=== PATIENT | female | born 1935 | race Caucasian/White ===

== ENCOUNTER 2017-07-24 12:34 | Emergency (ER) | payer MEDICARE, OTHER ==
[~2017-07-24] VITALS: Ht 165.1 cm; Wt 69.0 kg
--- NOTE | ~2017-07-24 | CT71 ---
[facility] A Service of [facility] RADIOLOGY TEXT RESULTS PATIENT: FRANCESCO SMITH LOCATION: [facility] : 37 UNIT #: [id number] AGE: [address]: Sky Bui MD SEX: F ORDER DR: [id number] [facility] [address] [place], [place] [address] [id number] E MR#: [id number] Acc #: [id number] NAME: FRANCESCO SMITH : 1935 SEX: F STUDY DATE/TIME: 07/24/2017 13:40 UNIT: [facility] ROOM: STUDY DESCRIPTION: CT Head Wo Contrast Attending Physician: Sky Bui M.D. Ordering Physician: Sky Bui M.D. Primary Care Physician: Dodie Russ M.D. MEDICAL IMAGING REPORT This report is preliminary unless electronic signature is present EXAM Noncontrast head CT HISTORY 82-year-old female fell last evening, complains of head pain, neck tenderness. COMPARISON Head CT 05/05/[address] exam was performed with one or more of the following radiation dose reduction techniques: automatic control, adjustment of mA and/or kV according to patient size, and iterative reconstruction. FINDINGS Axial noncontrast imaging of the brain demonstrates generalized atrophy. No mass, mass effect or midline shift. No hemorrhage. Extensive left vertebral vascular calcifications noted. Bony calvaria skull base mastoids unremarkable. Minimal ethmoid sinus mucosal disease and left maxillary sinus mucosal disease. IMPRESSION No acute intracranial abnormality identified. Mild generalized atrophy in keeping with advanced age. Dictated by... Rupa Bates M.D. THIS IS AN ELECTRONICALLY VERIFIED REPORT Rupa Bates M.D. at 07/24/2017 7:57 PM JMS/rnr [facility] A Service of [facility] RADIOLOGY TEXT RESULTS PATIENT: FRANCESCO SMITH LOCATION: [facility] : 37 UNIT #: [id number] AGE: [address]: Sky Bui MD SEX: F ORDER DR: TD: 07/24/2017 16:49 JOB #: [id number] MEDICAL IMAGING REPORT Page 1 of 1 COPY
--- NOTE | ~2017-07-24 | CR132 ---
[facility] A Service of [facility] RADIOLOGY TEXT RESULTS PATIENT: FRANCESCO SMITH LOCATION: [facility] : 37 UNIT #: [id number] AGE: [address]: Sky Bui MD SEX: F ORDER DR: [id number] [facility] [address] [place], [place] [address] [id number] E MR#: [id number] Acc #: [id number] NAME: FRANCESCO SMITH : 1935 SEX: F STUDY DATE/TIME: 07/24/2017 13:30 UNIT: [facility] ROOM: STUDY DESCRIPTION: CR Forearm 2 View Lt Attending Physician: Sky Bui M.D. Ordering Physician: Sky Bui M.D. Primary Care Physician: Dodie Russ M.D. MEDICAL IMAGING REPORT This report is preliminary unless electronic signature is present EXAM Three views of the left forearm. DATE 07/24/2017 HISTORY 82-year-old female with left wrist and forearm pain and swelling for 1 day. Fell yesterday. COMPARISON Left wrist radiographs 07/24/2017. FINDINGS Osteopenic changes are present which limit sensitivity for detection of subtle nondisplaced fracture. Suspected nondisplaced radial styloid process fracture, thought to be demonstrated to better advantage on the dedicated wrist radiographs of this same date. Radiocarpal alignment is maintained. Elbow joint appears intact. True lateral view of the elbow not obtained, performed with obliquity. No retained radiopaque foreign bodies seen in the soft tissues. Mild calcific atherosclerosis within the forearm and wrist. Diffuse left wrist soft tissue swelling. IMPRESSION 1. Suspected nondisplaced fracture of the left radial styloid. Radiocarpal alignment is maintained. 2. Elbow joint appears intact. 3. Osteopenia. Dictated by... Shelby Torres M.D. [facility] A Service of [facility] RADIOLOGY TEXT RESULTS PATIENT: FRANCESCO SMITH LOCATION: [facility] : 37 UNIT #: [id number] AGE: [address]: Sky Bui MD SEX: F ORDER DR: THIS IS AN ELECTRONICALLY VERIFIED REPORT Shelby Torres M.D. at 07/25/2017 12:27 PM BIB/corey TD: 07/24/2017 15:30 JOB #: [id number] MEDICAL IMAGING REPORT Page 1 of 1 COPY
--- NOTE | ~2017-07-24 | CT52 ---
[facility] A Service of [facility] RADIOLOGY TEXT RESULTS PATIENT: FRANCESCO SMITH LOCATION: [facility] : 37 UNIT #: [id number] AGE: [address]: Sky Bui MD SEX: F ORDER DR: [id number] [facility] [address] [place], [place] [address] [id number] E MR#: [id number] Acc #: [id number] NAME: FRANCESCO SMITH : 1935 SEX: F STUDY DATE/TIME: 07/24/2017 15:29 UNIT: [facility] ROOM: STUDY DESCRIPTION: CT Cervical Spine Wo Cont Attending Physician: Sky Bui M.D. Ordering Physician: Sky Bui M.D. Primary Care Physician: Dodie Russ M.D. MEDICAL IMAGING REPORT This report is preliminary unless electronic signature is present EXAM CT cervical spine without contrast DATE 07/24/2017 HISTORY 82-year-old female who fell last night with neck tenderness and head pain since last night. COMPARISON CT cervical spine 05/05/2016. PROCEDURE 2 mm axial images through the cervical spine without contrast. Sagittal and coronal reformatted images were obtained. This CT exam was performed with one or more of the following radiation dose reduction techniques: automatic control, adjustment of mA and/or kV according to patient size, and iterative reconstruction. FINDINGS No acute cervical spine fracture is seen. There is approximately 1-2 mm anterolisthesis of C4 upon C5 which is new since 05/05/2016. There is mild to moderate diminished disc height at C4-5 as well with new vacuum disc phenomenon since the previous exam. Anterior osteophyte formation is seen at C4, C5 and C6 and C7. Craniocervical junction is intact. Advanced facet arthropathy is present on the right at C4-5. More vssr-yz-edomhwbi multilevel facet arthropathy is also present. Varying degrees of posterior disc osteophyte formation are present, with probable ghky-oy-xzuspyfw canal stenosis at C5-6. There is a small right paracentral disc protrusion measuring 5 x 10 mm at C2-3 resulting in mild STS. [facility] A Service of [facility] & [facility] RADIOLOGY TEXT RESULTS PATIENT: FRANCESCO SMITH [id number] 37 UNIT #: [id number] AGE: [address]: Sky Bui MD SEX: F ORDER DR: to moderate central canal stenosis, not appreciably changed. IMPRESSION 1. 1-2 mm anterolisthesis of C4 upon C5, may be secondary to advanced facet arthropathy at that level, particularly on the right, but this anterolisthesis appears new since 05/05/2016. At C4-5, there is vacuum disc phenomenon which is new, as well, suggesting progressive degenerative change. 2. No acute cervical spine fracture. 3. Multilevel degenerative changes. Wpun-qe-uhywmnbz canal stenosis at C2-3 secondary to central disc protrusion and at C5-6 secondary to broad-based posterior disc osteophyte formation. Dictated by... Shelby Torres M.D. THIS IS AN ELECTRONICALLY VERIFIED REPORT Shelby Torres M.D. at 07/25/2017 12:27 PM BIB/kemi TD: 07/24/2017 17:46 JOB #: [id number] MEDICAL IMAGING REPORT Page 1 of 1 COPY
--- NOTE | ~2017-07-24 | CR281 ---
[facility] A Service of [facility] RADIOLOGY TEXT RESULTS PATIENT: FRANCESCO SMITH LOCATION: [facility] : 37 UNIT #: [id number] AGE: [address]: Sky Bui MD SEX: F ORDER DR: [id number] [facility] [address] [place], [place] [address] [id number] E MR#: [id number] Acc #: [id number] NAME: FRANCESCO SMITH : 1935 SEX: F STUDY DATE/TIME: 07/24/2017 13:27 UNIT: [facility] ROOM: STUDY DESCRIPTION: CR Wrist Min 3 View Lt Attending Physician: Sky Bui M.D. Ordering Physician: Sky Bui M.D. Primary Care Physician: Dodie Russ M.D. MEDICAL IMAGING REPORT This report is preliminary unless electronic signature is present EXAM 3-views left wrist DATE 07/24/2017 HISTORY Left wrist and forearm pain and swelling for 1 day. Fell yesterday. FINDINGS Findings suspicious for a nondisplaced radial styloid process fracture. Diffuse left wrist soft tissue swelling is seen. Distal ulna and carpal bones appear intact. Radiocarpal alignment and carpocarpal alignment is satisfactory. Diffuse left wrist soft tissue swelling. Osteopenia. IMPRESSION 1. Suspected nondisplaced radial styloid process fracture of the left wrist. No joint dislocation. 2. Diffuse left wrist soft tissue swelling. 3. Osteopenia. Dictated by... Shelby Torres M.D. THIS IS AN ELECTRONICALLY VERIFIED REPORT Shelby Torres M.D. at 07/25/2017 12:27 PM BIB/kemi TD: 07/24/2017 15:23 JOB #: [id number] MEDICAL IMAGING REPORT Page 1 of 1 COPY
[~2017-07-24 12:34] MED LIST: ANTIVERT PO; K-DUR20 ME1 PO; KLOR-CON PO; LASIX PO; LEVAQUIN750 M1 PO; LISINOPRIL PO; LISINOPRIL-HCTZ1 T14 PO; LISINOPRIL10 MG PO; NAMENDA5 MG PO; TIMOPTIC 0.5% OP5 M2 OD; TIMOPTIC2.5 ML OP; TIMOPTIC5 ML OU; TRAVATAN Z5 ML OU; TRAVATAN5 ML OP; VICODIN PO; ZANTAC PO; ZANTAC150 M1 PO; ZANTAC25 MG/M1 PO; ZESTRIL10 M1 PO; ZYLOPRIM PO; ZYLOPRIM100 MG PO
== END 2017-07-24 18:41 | disposition home or self-care (01) ==
LOC: CED 12:34
DX: S52.515A Nondisplaced fracture of left radial styloid process, initial encounter for closed fracture (principal); I50.9 Heart failure, unspecified; F17.210 Nicotine dependence, cigarettes, uncomplicated; Z79.899 Other long term (current) drug therapy; W01.0XXA Fall on same level from slipping, tripping and stumbling without subsequent striking against object, initial encounter
CPT/HCPCS: 29125; 70450; 72125; 73090; 73110; 99284